=== PATIENT | male | born 1940 | race Caucasian/White ===

== ENCOUNTER 2016-07-17 09:31 | Day surgery (SDC) | payer MEDICARE, BC ==
--- NOTE | ~2016-07-17 | EGD ---
EGD REPORT [facility] [address] [place] [address] [id number] NAME: JAQUI SILVERMAN : [birth year] STATUS : REG [facility]#: [id number] AGE: 75 ADM/REG DATE : 07/17/16 MR#: [id number] REPORT SERV DATE: 07/17/16 DICTATED BY: JENIFER ARMENTA DATE: 07/17/16 REPORT STATUS : Draft TRANSCRIBED BY: [facility] DATE: 07/17/16 Endoscopy Center Patient Name: Jaqui Silverman Date of : 1940 Attending MD: POP ARMENTA MD Procedure Date No Time: 07/17/2016 Procedure: Upper GI endoscopy Indications: Follow-up of Brenner's esophagus Referring MD: MI KEY Medicines: See the Anesthesia note for documentation of the administered medications Complications: No immediate complications. Estimated blood loss: Minimal. Procedure: Pre-Anesthesia Assessment: - ASA Grade Assessment: III - A patient with severe systemic disease. - Prior to the procedure, a History and Physical was performed, and patient medications and allergies were reviewed. The patient's tolerance of previous anesthesia was also reviewed. The risks and benefits of the procedure and the sedation options and risks were discussed with the patient. All questions were answered, and informed consent was obtained. Prior Anticoagulants: The patient has taken anticoagulant medication, last dose was 2 days prior to procedure. After reviewing the risks and benefits, the patient was deemed in satisfactory condition to undergo the procedure. After obtaining informed consent, the endoscope was passed under direct vision. Throughout the procedure, the patient's blood pressure, pulse, and oxygen saturations were monitored continuously. The GIF [id number] was introduced through the mouth, and advanced to the second part of duodenum. The upper GI endoscopy was accomplished without difficulty. The patient tolerated the procedure well. Findings: The examined duodenum was normal. A 2 cm hiatus hernia was present. No other significant abnormalities were identified in a careful examination of the stomach. There were esophageal mucosal changes consistent with short-segment Brenner's esophagus present in the lower third of the esophagus. The maximum longitudinal extent of these mucosal changes was 1 cm in length. Mucosa was biopsied with a cold forceps for histology in 4 quadrants in EGD REPORT [address] [address] NAME: JAQUI SILVERMAN : [birth year] STATUS : REG [facility] PAT#: [id number] AGE: 75 ADM/REG DATE : 07/17/16 MR#: [id number] REPORT SERV DATE: 07/17/16 DICTATED BY: JENIFER ARMENTA DATE: 07/17/16 REPORT STATUS : Draft TRANSCRIBED BY: [facility] DATE: 07/17/16 the lower third of the esophagus. One specimen bottle was sent to pathology. Estimated blood loss was minimal. Impression: - Normal examined duodenum. - Hiatus hernia. 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 Biopsied. Recommendation: - Patient has a contact number available for emergencies. The signs and symptoms of potential delayed complications were discussed with the patient. Return to normal activities tomorrow. Written discharge instructions were provided to the patient. - Regular diet. - Discharge patient to home. - Continue present medications. - Await pathology results. - Repeat the upper endoscopy in 3 years for surveillance. Procedure Code(s): --- Professional --- 02205, Esophagogastroduodenoscopy, flexible, transoral; with biopsy, single or multiple Diagnosis Code(s): --- Professional --- K22.70, Brenner's esophagus without dysplasia K44.9, Diaphragmatic hernia without obstruction or gangrene CPT copyright 2013 [employer] [place] [employer]. All rights reserved. The codes documented in this report are preliminary and upon pivot maker review may be revised to meet current compliance requirements. POP ARMENTA MD 07/17/2016 11:07 AM This report has been signed electronically. Number of Addenda: 0 Note Initiated On: 07/17/2016 10:47 AM Scope Withdrawal Time 0 hours 0 minutes 0 seconds [id number] [id number]
[~2016-07-17 09:31] MED LIST: *UNABLE3; ALLEGRA180 PO; ASA5GR PO; ASAB PO; ATEN50 PO; BACDS PO; BETA-VAL0.1 % EX; CARTIA XT180 MG/24 PO; CELEBREX2 PO; COSAMIN DS1 TAB PO; DILT-XR180 MG PO; ELIQUIS 5 MG TAB5 MG PO; FISH OIL1200 MG PO; FISH-EPA1000 MG PO; FLOMAX4 PO; LEVOTHYROXIN75 MCG PO; LIPITOR10 PO; LOP25 PO; METHOC500B PO; MOBIC15 MG PO; MULTIPLE VIT PO; MULTIVITAMI1 PO; NTG150 SL; PCET PO; PILOCARPINE; PILOCARPINE5 MG OR; PILOCARPINE7.5 MG; PILOCARPINE7.5 MG OR; PLAQ200B PO; PLAVIX PO; PRAVACHOL80 MG PO; PREV30 PO; RESTASIS OPH; SALAGEN7.5 MG PO; TIAZA1 PO; TOPXL25 PO; TRIPLE FLEX PO; ULTRAM50 PO; VICODINTAB PO; VITE PO; VOLTAREN1 % TOP; ZANTAC150 MG PO; ZOFRAN4 PO
== END 2016-07-17 23:59 | disposition home or self-care (01) ==
LOC: DMU 09:31
PROVIDERS: Internal Medicine Gastroenterology
PROC: 0DB38ZX Excision of Lower Esophagus, Via Natural or Artificial Opening Endoscopic, Diagnostic (ICD-10-PCS; principal; 2016-07-17 11:00)
DX: K22.70 Barrett's esophagus without dysplasia (principal); K44.9 Diaphragmatic hernia without obstruction or gangrene; R13.10 Dysphagia, unspecified; I25.10 Atherosclerotic heart disease of native coronary artery without angina pectoris; I48.91 Unspecified atrial fibrillation; Z95.1 Presence of aortocoronary bypass graft; Z95.5 Presence of coronary angioplasty implant and graft; Z79.01 Long term (current) use of anticoagulants; Z88.2 Allergy status to sulfonamides; Z79.82 Long term (current) use of aspirin; M32.9 Systemic lupus erythematosus, unspecified; E03.9 Hypothyroidism, unspecified; K21.9 Gastro-esophageal reflux disease without esophagitis; M06.9 Rheumatoid arthritis, unspecified; H91.90 Unspecified hearing loss, unspecified ear; K64.9 Unspecified hemorrhoids; I49.9 Cardiac arrhythmia, unspecified; E78.00 Pure hypercholesterolemia, unspecified; I10 Essential (primary) hypertension; G57.93 Unspecified mononeuropathy of bilateral lower limbs; Z79.899 Other long term (current) drug therapy; Z85.820 Personal history of malignant melanoma of skin; Z85.89 Personal history of malignant neoplasm of other organs and systems; Z98.890 Other specified postprocedural states; Z98.52 Vasectomy status; Z90.49 Acquired absence of other specified parts of digestive tract; Z95.0 Presence of cardiac pacemaker; Z89.411 Acquired absence of right great toe; Z90.89 Acquired absence of other organs; Z87.442 Personal history of urinary calculi; Z98.41 Cataract extraction status, right eye; Z98.42 Cataract extraction status, left eye; Z96.1 Presence of intraocular lens
CPT/HCPCS: 88305